=== PATIENT | female | born 1955 | race Caucasian/White ===

== ENCOUNTER 2023-02-21 20:14 | Emergency (ER) | payer OTHER, MEDICARE ==
[~2023-02-21] VITALS: Ht 167.6 cm; Wt 100.0 kg
[2023-02-21] MEDS ORDERED: amox tr/potassium clavulanate 875/125mg TAB PO ONE (22:35)
[2023-02-21] MEDS ORDERED: ondansetron 4mg rapidly disintigrating tab PO ONE (22:35)
[2023-02-21] MEDS ORDERED: AMOX-419 PO (23:14)
[2023-02-21] MEDS ORDERED: bacitracin 15gm ointment TP ONE (23:15)
[2023-02-21] MEDS ORDERED: TETanus/Pertussis (Acell)/Diphther VAC/PF (Tdap-Adult) 0.5ml syringe IMVAC ONE (23:15)
[2023-02-22 00:25] VITALS: BP 108/62
== END 2023-02-22 00:26 | disposition home or self-care (01) ==
LOC: ER 20:15
DX: S60.410A Abrasion of right index finger, initial encounter (principal); W54.0XXA Bitten by dog, initial encounter; Y93.89 Activity, other specified; Y92.89 Other specified places as the place of occurrence of the external cause; Y99.8 Other external cause status
CPT/HCPCS: 73552; 90471; 90715; 99284

== ENCOUNTER 2023-12-30 20:18 | Emergency (ER) | payer OTHER, MEDICARE ==
[~2023-12-30] VITALS: Ht 167.6 cm; Wt 81.8 kg
[2023-12-30 20:34] VITALS: BP 124/70; PULSE 72; RESP 16; TEMP 97.9; O2SAT 95
[2023-12-30] MEDS: oxyCODONE/APAP 5-325mg tablet PO ONE (22:27)
[2023-12-30] MEDS ORDERED: OXYC-145 PO (23:00)
[2023-12-30] MEDS ORDERED: IBUP-1984 PO (23:00)
== END 2023-12-30 23:31 | disposition home or self-care (01) ==
LOC: ER 20:19
DX: S62.101A Fracture of unspecified carpal bone, right wrist, initial encounter for closed fracture (principal); W18.30XA Fall on same level, unspecified, initial encounter; Y93.89 Activity, other specified; Y92.89 Other specified places as the place of occurrence of the external cause; Y99.8 Other external cause status
CPT/HCPCS: 29125; 73110; 99283; A6449